=== PATIENT | male | born 1995 | race Caucasian/White ===

== ENCOUNTER 2018-11-21 22:13 | Emergency (ER) | payer OTHER ==
[~2018-11-21] VITALS: Ht 188 cm; Wt 91.3 kg
[~2018-11-21 22:13] MED LIST: IBUP-1542 PO
[2018-11-21 22:16] VITALS: BP 130/58; PULSE 69; RESP 20; Ht 188 cm; Wt 91.3 kg
--- NOTE | 2018-11-22 04:45 | ERD ---
ER Documentation Chief Complaint Chief Complaint LEFT ARM PAIN S/P FALL FROM TRUCK, STATED HITTING HEAD, NO KO X2WK HPI 22-year-old male presents to the ED complaining of left hand pain status post falling from a truck 2 weeks ago. Patient states he was sitting in the bed of a truck when he accidentally fell off and landed on his outstretched hands. He states he did hit the back of his head against the floor but did not lose consciousness. There has been no nausea or vomiting, dizziness or headache since. He states he continues to have pain near the lateral aspect of his left hand. No numbness or tingling. No pain with range of motion. He is right-hand dominant. ROS All systems reviewed and are negative except as per history of present illness. Medications Home Meds Active Scripts Ibuprofen* (Motrin*) 600 Mg Tab, 600 MG PO Q6H PRN for PAIN AND OR ELEVATED TEMP, #30 TAB Prov:VICENTE SALAZAR PA-C 11/22/18 Reported Medications [None] No Conflict Check 11/29/10 Allergies Allergies: Coded Allergies: No Known Allergy (Verified Allergy, Unknown, 11/29/10) PMhx/Soc Medical and Surgical Hx: pt denies Surgical Hx History of Surgery: No Anesthesia Reaction: No Hx Neurological Disorder: No Hx Respiratory Disorders: No Hx Cardiac Disorders: No Hx Psychiatric Problems: No Hx Miscellaneous Medical Probl: No Hx Alcohol Use: No Hx Substance Use: No Hx Tobacco Use: No Smoking Status: Never smoker FmHx Family History: No diabetes Physical Exam Vitals Vital Signs Date Temp Pulse Resp B/P (MAP) Pulse Ox O2 O2 Flow FiO2 Time Delivery Rate 11/21/18 98.2 69 20 130/58 100 22:16 (82) Physical Exam Const: No acute distress Head: Atraumatic Eyes: Normal Conjunctiva ENT: Normal External Ears, Nose and Mouth. Neck: Full range of motion. No meningismus. Upper Extremity - left Skin: No laceration, or evidence of external trauma Compartments: Soft Motor: Full active range of motion wrist/hand Sensation: Intact shoulder/pinky/middle finger/thumb web space Bones: + moderate tender to dorsal aspect of fifth metacarpal bone. Nontender distal wrist Snuffbox: Nontender Joints: No effusion Pulses/Perfusion: 2+ radial, Capillary refill < 2 seconds Ext: No cyanosis, or edema Neur: Awake and alert Psych: Normal Mood and Affect Procedures/[facility] LABS & DIAGNOSTIC IMAGING: PROCEDURE: Left hand x-ray CLINICAL INDICATION: Trauma with pain. TECHNIQUE: AP, lateral and oblique views of the left hand were obtained. 3 images COMPARISON: None FINDINGS: There is a minimally displaced fracture of the base of the fifth metacarpal with what appears to be adjacent healing reaction suggesting that this may be subacute. Bony alignment is normal. Joint spaces are maintained. There is no evidence of focal soft tissue abnormality. IMPRESSION: 1. Fracture of the base of the left fifth metacarpal, age indeterminate. PROCEDURES: Splint: ulnar gutter, fiberglass Splint Assessment: Neurovascularly intact post splint placement with good fit. Offered pain medications but he deferred. MEDICAL DECISION MAKING: This is a 22-year-old male who presents with continued left hand pain status post falling off a truck. He has no focal neurological deficits on physical exam. I do not think any CT head at this time. X-rays of the right hand reveals a left fifth metacarpal fracture, no angulation or displacement. [place]on rueda was placed in an ulnar gutter splint and given copies of his report. He was provided referral to an orthopedist and told to follow-up with them in the next week or so. Patient's extremity symptoms have stabilized while they have been evaluated in the department and are appropriate for outpatient follow up. No evidence of compartment syndrome, neurologic injury, vascular injury, open joint, open fracture, tendon laceration, or foreign body. Strict return precautions were discussed. PRESCRIPTIONS: Ibuprofen SPECIALIST FOLLOW UP RECOMMENDED: Ortho Departure Diagnosis: Primary Impression: Fracture of fifth metacarpal bone Encounter type: initial encounter Fracture type: closed Metacarpal location: unspecified portion of metacarpal Fracture alignment: nondisplaced Laterality: left Qualified Codes: S62.307A - Unspecified fracture of fifth metacarpal bone, left hand, initial encounter for closed fracture Condition: Stable Patient Instructions: Nguyễn Quintana'deedee Referrals: [facility] Urgent Care 7 a.m.- 11 p.m. Every Day of the Week NO APPOINTMENT OR AUTHORIZATION NEEDED Additional Instructions: WEAR THE CAST FOR THE NEXT FEW WEEKS. TAKE IBUPROFEN FOR PAIN. SEE YOUR DOCTOR NEXT WEEK, RETURN HERE FOR ANY NEW OR WORSENING SYMPTOMS. DISHIGRIKIAN,ZEPYUR N PA-C Nov 22, 2018 04:45
== END 2018-11-22 01:56 | disposition home or self-care (01) ==
LOC: FTE 22:13
DX: S62.307A Unspecified fracture of fifth metacarpal bone, left hand, initial encounter for closed fracture (principal); W01.198A Fall on same level from slipping, tripping and stumbling with subsequent striking against other object, initial encounter; Y92.9 Unspecified place or not applicable
CPT/HCPCS: 29125; 73130; Z7502